=== PATIENT | female | born 1985 | race Caucasian/White ===

== ENCOUNTER 2017-04-21 17:02 | Inpatient (IN) | payer MEDICAID ==
[2017-04-21] MEDS ORDERED: Misoprostol 25 MCG (1/4 of 100 MCG) Tab VAG PRN (17:26)
[2017-04-21] MEDS ORDERED: Lidocaine 1% 50 ML MDV INJECT PRN (17:26)
[2017-04-21] MEDS ORDERED: Water For Irrigation,Sterile 1,000 ML Container IRR PRN (17:26)
[2017-04-21] MEDS ORDERED: Terbutaline 1 MG/ML SDV SUBCUT PRN (17:26)
[2017-04-21] MEDS ORDERED: Carboprost Tromethamine 250 MCG/1 ML Amp IM PRN (17:26)
[2017-04-21] MEDS ORDERED: Sodium Chloride 0.9% 2.5 ML Syringe FLUSH PRN (17:26)
[2017-04-21] MEDS ORDERED: Sodium Chloride 0.9% 10 ML Syringe FLUSH PRN (17:26)
[2017-04-21] MEDS ORDERED: Methylergonovine 0.2 MG/1 ML Amp IM PRN (17:26)
[2017-04-21] MEDS ORDERED: Misoprostol 200 MCG Tab PO PRN (17:26)
[2017-04-21] MEDS ORDERED: Oxytocin/Lactated Ringers 30 UNIT/500 ML BAG IV SCH ×2 (17:30)
[2017-04-21] MEDS ORDERED: Misoprostol 25 MCG (1/4 of 100 MCG) Tab VAG SCH (17:30)
[2017-04-21] MEDS: Lactated Ringers 1,000 ML IV SCH (17:55)
[2017-04-22] MEDS: Butorphanol 1 MG/ML SDV IVPUSH PRN ×3 (01:30→05:49)
[2017-04-22] MEDS: Lactated Ringers 1,000 ML IV SCH ×2 (05:49→10:39)
[2017-04-22] MEDS ORDERED: Butorphanol 1 MG/ML SDV IVPUSH PRN (09:09)
[2017-04-22] MEDS ORDERED: fentaNYL 100 MCG/2 ML SDV ONE (10:13)
[2017-04-22] MEDS ORDERED: Ropivacaine HCl/PF 100 ML ONE (10:14)
--- NOTE | 2017-04-22 10:44 | PCM.PREANE ---
Preanesthetic Assessment - Anesthesia/Transfusion/Family Hx Anesthesia History: Prior Anesthesia Without Reaction ("laughing gas for wisdom teeth only") Family History of Anesthesia Reaction: No Transfusion History: No Prior Transfusion(s) - Review of Systems General: No Symptoms Pulmonary: No Symptoms Cardiovascular: No Symptoms Gastrointestinal: Nausea, Vomiting Neurological: No Symptoms Other: Reports: None - Physical Assessment NPO Status Date: 04/22/17 NPO Status Time: 10:42 (sips/chips) Blood Pressure: 136/61 Height: 5 ft 3 in Weight: 170 lb ASA Class: 1 Mental Status: Alert & Oriented x3 Dentition: Reports: Normal Dentition ROM/Head Extension: Full Lungs: Clear to auscultation, Normal respiratory effort Cardiovascular: Regular Rate, Regular Rhythm - Lab Values: Laboratory Last Values WBC 12.34 K/uL (4.0-11.0) H 04/21/17 17:47 RBC 3.84 M/uL (4.30-5.90) L 04/21/17 17:47 Hgb 12.6 g/dL (12.0-16.0) 04/21/17 17:47 Hct 36.5 % (36.0-46.0) 04/21/17 17:47 MCV 95.1 fL (80.0-98.0) 04/21/17 17:47 MCH 32.8 pg (27.0-32.0) H 04/21/17 17:47 MCHC 34.5 g/dL (31.0-37.0) 04/21/17 17:47 RDW Std Deviation 44.3 fl (28.0-62.0) 04/21/17 17:47 RDW Coeff of Iram 13 % (11.0-15.0) 04/21/17 17:47 Plt Count 247 K/uL (150-400) 04/21/17 17:47 MPV 11.00 fL (7.40-12.00) 04/21/17 17:47 Nucleated RBC % 0.0 /100WBC 04/21/17 17:47 Nucleated RBCs # 0 K/uL 04/21/17 17:47 Blood Type O NEGATIVE 04/21/17 17:47 Antibody Screen NEGATIVE 04/21/17 17:47 - Allergies Allergies/Adverse Reactions: Allergies Allergy/AdvReac Type Severity Reaction Status Date / Time amoxicillin Allergy Hives Verified 04/21/17 17:25 - Blood Blood Available: No Product(s) Available: None - Anesthesia Plan Free Text/Narrative:: Labor Epidural Pre-Op Medication Ordered: None - Acknowledgements Anesthesia Type Planned: Epidural Pt an Appropriate Candidate for the Planned Anesthesia: Yes Alternatives and Risks of Anesthesia Discussed w Pt/Guardian: Yes Pt/Guardian Understands and Agrees with Anesthesia Plan: Yes PreAnesthesia Questionnaire [employer]NER History: Reports: - Past Surgical History HEENT Surgical History: Reports: Oral Surgery, Other (See Below) Other HEENT Surgeries/Procedures: wisdom tooth extraction - SUBSTANCE USE Smoking Status *Q: Former Smoker Recreational Drug Use History: No - HOME MEDS Home Medications: Home Meds PNV95/Ferrous Fumarate/FA [ Tablet] 04/21/17 [History] - CURRENT (IN HOUSE) MEDS Current Meds: Current Medications Butorphanol Tartrate (Stadol) 1 mg IVPUSH Q1H PRN PRN Reason: Pain Last Admin: 04/22/17 05:49 Dose: 1 mg Butorphanol Tartrate (Stadol) 1 mg IVPUSH ONETIME PRN PRN Reason: Pain Carboprost Tromethamine (Hemabate Ds) 250 mcg IM ASDIRECTED PRN PRN Reason: Post Hemorrhage Lactated Ringer's (Ringers, Lactated) 1,000 mls @ 150 mls/hr IV ASDIRECTED BRENDEN Last Admin: 04/22/17 10:39 Dose: 150 mls/hr Oxytocin/Lactated Ringer's (Pitocin In Lr 30 Units/500 Ml) 30 unit in 500 mls @ 2 mls/hr IV TITRATE BRENDEN; 2 MUNITS/MIN PRN Reason: Protocol Stop: 04/22/17 17:29 Oxytocin/Lactated Ringer's (Pitocin In Lr 30 Units/500 Ml) 30 unit in 500 mls @ 2 mls/hr IV TITRATE BRENDEN; 2 MUNITS/MIN PRN Reason: Protocol Last Admin: 04/22/17 09:20 Dose: 2 munits/min, 2 mls/hr Lidocaine HCl (Xylocaine 1%) 50 ml INJECT .ONCE PRN PRN Reason: Laceration repair Methylergonovine Maleate (Methergine) 0.2 mg IM ASDIRECTED PRN PRN Reason: Post Hemorrhage Misoprostol (Cytotec) 200 mcg PO .ONCE PRN PRN Reason: Post Hemorrhage Misoprostol (Cytotec) 25 mcg VAG .ONCE BRENDEN Last Admin: 04/21/17 19:54 Dose: 25 mcg Misoprostol (Cytotec) 25 mcg VAG Q4H PRN PRN Reason: Cervical Ripening Stop: 04/22/17 21:27 Sodium Chloride (Saline Flush) 10 ml FLUSH ASDIRECTED PRN PRN Reason: Keep Vein Open Sodium Chloride (Saline Flush) 2.5 ml FLUSH ASDIRECTED PRN PRN Reason: Keep Vein Open Sterile Water (Sterile Water For Irrigation) 1,000 ml IRR ASDIRECTED PRN PRN Reason: delivery Terbutaline Sulfate (Brethine) 0.25 mg SUBCUT ASDIRECTED PRN PRN Reason: Tacysystole Discontinued Medications Fentanyl (Sublimaze) Confirm Administered Dose 100 mcg .ROUTE .STK-MED ONE Stop: 04/22/17 10:14 Ropivacaine (Naropin 0.2%) Confirm Administered Dose 100 mls @ as directed .ROUTE .STK-MED ONE Stop: 04/22/17 10:15
[2017-04-22] MEDS ORDERED: Bisacodyl 10 MG Supp RECTAL PRN (17:56)
[2017-04-22] MEDS ORDERED: Acetaminophen 500 MG Tab PO PRN ×2 (17:56)
[2017-04-22] MEDS ORDERED: Ibuprofen 400 MG Tab PO PRN (17:56)
[2017-04-22] MEDS ORDERED: oxyCODONE 5 MG Tab PO PRN (17:56)
[2017-04-22] MEDS ORDERED: Benzocaine/Menthol 20%-0.5% Spray 78 GM Cannister TOP PRN (17:56)
[2017-04-22] MEDS ORDERED: Aluminum Hydroxide/Magnesium Hydroxide/Simethicone Susp 30 ML Cup PO PRN (17:56)
[2017-04-22] MEDS ORDERED: Docusate Sodium 100 MG Cap PO PRN (17:56)
[2017-04-22] MEDS ORDERED: Witch Hazel Medicated Pads 40/Jar TOP PRN (17:56)
[2017-04-22] MEDS: Ibuprofen 800 MG Tab PO PRN (21:02)
[2017-04-22] MEDS: Lanolin 100% Cream 7 GM Tube TOP PRN (21:02)
--- NOTE | 2017-04-22 22:38 | OR ---
SURGEON: Cary Mccabe M.D. DATE OF PROCEDURE: 04/22/2017 PREOPERATIVE DIAGNOSES: 1. A 41-week intrauterine . 2. Induction for positive . 3. Arrest of descent. POSTOPERATIVE DIAGNOSES: 1. A 41-week intrauterine . 2. Induction for positive . 3. Arrest of descent. PROCEDURE: Vacuum assisted vaginal delivery. Second-degree vaginal laceration repaired. ANESTHESIA: Epidural. COMPLICATIONS: None known. FINDINGS: Term male score 9 at 1 minute, 9 at 5 minutes. Weight 3440 g. Spontaneous delivery, intact placenta, 3-vessel cord. DISPOSITION: Infant to nursery, mom in LDRP, stable. PROCEDURE IN DETAIL: Lizeth is a 31-year-old, G1, P0, at 41 weeks' gestational age, who presented on the evening of 04/21/2017 for scheduled induction of labor due to positive . On initial examination, she was found to be 1-2 cm dilated, was initiated on Cytotec, ripening responded nicely to this. Following morning, she was 2 cm, 80% effaced, -2 station. She had spontaneous rupture of membranes with clear fluid around midnight. The patient became increasingly uncomfortable on Pitocin induction the following morning and underwent regional anesthesia from the epidural. She became uncomfortable and began to progress more rapidly thereafter. Shortly after the epidural, she was found to be 7 cm, and within the next 2 hours, she progressed to complete 100% effaced, +2 station. The patient was very tired at this time and after arrest, so she was allowed to continue to labor. heart tones remained in the 120s with variability. The patient began pushing efforts at approximately 3:00 p.m. and pushed readily however with minimal change in station, +2 station. I came to assist patient at approximately 4:30 p.m. and she was found to be complete 100% effaced, +2 station. [place] to be in the OA position. With pushing efforts, there was little movement to pass the station, therefore discussed options with patient including an operative assisted vaginal delivery in the form of vacuum. Risks of procedure were discussed including cephalic hematoma, intracranial bleeding, and increased risk for maternal vaginal trauma. The patient had voiced her understanding. She would like to proceed with assistance at this time. The sutures once again including sagittal suture was palpated. [place] was approximately 3400 g. The Mityvac was placed, and with the next two contractions, was attempted to insufflate the vacuum, however did not maintain suction really at all. Therefore, despite attempts at repositioning, just did not maintain pressure even with testing, therefore discarded this vacuum and proceeded to use another one. Once again, the vacuum was gently placed. The patient tolerated this keeping in mind the suture lines, and with the next approximately 4-5 contractions, was able to deliver to a +4 station. With the insufflation in the green zone during pushing process and otherwise desufflated between, there were two pop offs that occurred during the last stages of the pushing effort. The 's head then delivered followed by the anterior shoulder posterior made by without difficulty and nuchal cord x1 was reduced manually. The infant's oropharynx and nares bulb suctioned. Cord was clamped x2 and cut. Infant was crying with good tone on the perineum and was handed to his mother with attending nursing staff at her side. Cord arterial, cord venous, cord blood was obtained. Light suprapubic pressure was applied. The placenta was delivered spontaneously intact. Vigorous fundal uterine massage was then applied while 30 units of Pitocin was delivered in 500 mL IV fluid. Upon inspection of cervix, vaginal sidewalls, and perineum, there was found to be a second-degree vaginal laceration in the midline. This was repaired using 3-0 Vicryl in the usual fashion. Hemostasis appears evident. Uterus remained firm. Sponge and needle count was correct. The patient will remain in LDRP. Infant in nursery. STEVE / NEAL /[id number]
[2017-04-23] MEDS: Ibuprofen 800 MG Tab PO PRN ×2 (06:07→16:11)
--- NOTE | 2017-04-23 08:15 | PCM.PNPP ---
<Rocio Mullen - Last Filed: 04/23/17 08:12> - General Info Date of Service: 04/23/17 Functional Status: Reports: pain controlled, tolerating diet, ambulating, urinating - Review of Systems General: Denies: Fever, Weakness, Fatigue Pulmonary: Denies: shortness of breath, pleuritic chest pain, cough Cardiovascular: Denies: Chest Pain, Palpitations, Dyspnea on Exertion Gastrointestinal: Denies: Abdominal pain, Constipation Genitourinary: Denies: dysuria Psychiatric: Reports: no symptoms - General Info Date of Service: 04/23/17 - Patient Data Vital Signs - most recent: Last Vital Signs Temp 36.8 C 04/23/17 05:00 Pulse 76 04/23/17 05:00 Resp 16 04/23/17 05:00 BP 114/68 04/23/17 05:00 Pulse Ox 94 L 04/23/17 05:00 Weight - most recent: 77.111 kg Lab Results - last 24 hrs: Laboratory Results - last 24 hr 04/23/17 Range/Units 05:11 Hgb 11.2 L (12.0-16.0) g/dL Hct 33.3 L (36.0-46.0) % Med Orders - Current: Current Medications Acetaminophen (Tylenol Extra Strength) 500 mg PO Q4H PRN PRN Reason: Pain Acetaminophen (Tylenol Extra Strength) 1,000 mg PO Q4H PRN PRN Reason: Pain Al Hydroxide/Mg Hydroxide (Mag-Al Plus) 30 ml PO Q8H PRN PRN Reason: Heartburn Benzocaine/Menthol (Dermoplast Pain Relief 20%-0.5% [place]) 78 gm TOP ASDIRECTED PRN PRN Reason: Perineal Comfort Measure Bisacodyl (Dulcolax) 10 mg RECTAL .ONCE PRN PRN Reason: Constipation Carboprost Tromethamine (Hemabate Ds) 250 mcg IM ASDIRECTED PRN PRN Reason: Post Hemorrhage Docusate Sodium (Colace) 100 mg PO BID PRN PRN Reason: Constipation Emollient Ointment (Lansinoh Hpa) 0 gm TOP ASDIRECTED PRN PRN Reason: Sore Nipples Last Admin: 04/22/17 21:02 Dose: 1 gm Lactated Ringer's (Ringers, Lactated) 1,000 mls @ 150 mls/hr IV ASDIRECTED BRENDEN Last Admin: 04/22/17 10:39 Dose: 150 mls/hr Oxytocin/Lactated Ringer's (Pitocin In Lr 30 Units/500 Ml) 30 unit in 500 mls @ 2 mls/hr IV TITRATE BRENDEN; 2 MUNITS/MIN PRN Reason: Protocol Last Titration: 04/22/17 15:52 Dose: 6 munits/min, 6 mls/hr Ibuprofen (Motrin) 400 mg PO Q4H PRN PRN Reason: Pain Ibuprofen (Motrin) 800 mg PO Q6H PRN PRN Reason: Pain Last Admin: 04/23/17 06:07 Dose: 800 mg Methylergonovine Maleate (Methergine) 0.2 mg IM ASDIRECTED PRN PRN Reason: Post Hemorrhage Misoprostol (Cytotec) 200 mcg PO .ONCE PRN PRN Reason: Post Hemorrhage Oxycodone HCl (Oxycodone) 5 mg PO Q2H PRN PRN Reason: Pain Sodium Chloride (Saline Flush) 2.5 ml FLUSH ASDIRECTED PRN PRN Reason: Keep Vein Open Witch Jeannie (Tucks) 1 pad TOP ASDIRECTED PRN PRN Reason: comfort care Last Admin: 04/22/17 21:00 Dose: 1 applic Discontinued Medications Butorphanol Tartrate (Stadol) 1 mg IVPUSH Q1H PRN PRN Reason: Pain Last Admin: 04/22/17 05:49 Dose: 1 mg Butorphanol Tartrate (Stadol) 1 mg IVPUSH ONETIME PRN PRN Reason: Pain Fentanyl (Sublimaze) Confirm Administered Dose 100 mcg .ROUTE .STK-MED ONE Stop: 04/22/17 10:14 Oxytocin/Lactated Ringer's (Pitocin In Lr 30 Units/500 Ml) 30 unit in 500 mls @ 2 mls/hr IV TITRATE BRENDEN; 2 MUNITS/MIN PRN Reason: Protocol Stop: 04/22/17 17:29 Ropivacaine (Naropin 0.2%) Confirm Administered Dose 100 mls @ as directed .ROUTE .STK-MED ONE Stop: 04/22/17 10:15 Lidocaine HCl (Xylocaine 1%) 50 ml INJECT .ONCE PRN PRN Reason: Laceration repair Misoprostol (Cytotec) 25 mcg VAG .ONCE BRENDEN Last Admin: 04/21/17 19:54 Dose: 25 mcg Misoprostol (Cytotec) 25 mcg VAG Q4H PRN PRN Reason: Cervical Ripening Stop: 04/22/17 21:27 Sodium Chloride (Saline Flush) 10 ml FLUSH ASDIRECTED PRN PRN Reason: Keep Vein Open Sterile Water (Sterile Water For Irrigation) 1,000 ml IRR ASDIRECTED PRN PRN Reason: delivery Last Admin: 04/22/17 17:30 Dose: 1,000 ml Terbutaline Sulfate (Brethine) 0.25 mg SUBCUT ASDIRECTED PRN PRN Reason: Tacysystole - Interaction Disposition, : [place] in Room with Family Feeding: Attempted ; Nursed Fair/Poor Support Person: , Mother - Recovery Exam Fundal Tone: Firm Fundal Level: At Umbilicus Fundal Placement: Midline Lochia Amount: Small, Moderate Lochia Color: Rubra/Red Perineum Description: Edematous Other Perinuem Description: 2nd degree laceration with repair Episiotomy/Laceration: Approximated Bladder Status: Voiding - Exam General: alert, oriented Neck: supple Lungs: Clear to auscultation, Normal respiratory effort Cardiovascular: Regular Rate, Regular Rhythm Abdomen: bowel sounds present, soft, no tenderness, no distension Extremities: edema (trace) Psy/Mental Status: alert, normal affect, normal mood - Problem List & Annotations (1) Vaginal delivery SNOMED Code(s): 507258475 Code(s): O80 - ENCOUNTER FOR FULL-TERM UNCOMPLICATED DELIVERY Status: Acute Current Visit: Yes - Problem List Review Problem List Initiated/Reviewed/Updated: Yes - Assessment Assessment:: PPD #1 from vacuum assisted vaginal delivery. Minimal pain and lochia. Breast feeding well. Discharge home today. - Plan Plan:: Discharge home today. Nothing in the vagina for 6 weeks. Continue PNV while breast feeding. Can use OTC ibuprofen/tylenol as needed for pain. Instructed patient to call if she develops fever greater than 101 or bleeding through a large pad an hour. F/U with [facility] in 6 weeks. <Cary Mccabe R - Last Filed: 04/23/17 09:18> - Patient Data Vital Signs - most recent: Last Vital Signs Temp 36.8 C 04/23/17 05:00 Pulse 76 04/23/17 05:00 Resp 16 04/23/17 05:00 BP 114/68 04/23/17 05:00 Pulse Ox 94 L 04/23/17 05:00 Lab Results - last 24 hrs: Laboratory Results - last 24 hr 04/23/17 Range/Units 05:11 Hgb 11.2 L (12.0-16.0) g/dL Hct 33.3 L (36.0-46.0) % Med Orders - Current: Current Medications Acetaminophen (Tylenol Extra Strength) 500 mg PO Q4H PRN PRN Reason: Pain Acetaminophen (Tylenol Extra Strength) 1,000 mg PO Q4H PRN PRN Reason: Pain Al Hydroxide/Mg Hydroxide (Mag-Al Plus) 30 ml PO Q8H PRN PRN Reason: Heartburn Benzocaine/Menthol (Dermoplast Pain Relief 20%-0.5% [place]) 78 gm TOP ASDIRECTED PRN PRN Reason: Perineal Comfort Measure Bisacodyl (Dulcolax) 10 mg RECTAL .ONCE PRN PRN Reason: Constipation Carboprost Tromethamine (Hemabate Ds) 250 mcg IM ASDIRECTED PRN PRN Reason: Post Hemorrhage Docusate Sodium (Colace) 100 mg PO BID PRN PRN Reason: Constipation Emollient Ointment (Lansinoh Hpa) 0 gm TOP ASDIRECTED PRN PRN Reason: Sore Nipples Last Admin: 04/22/17 21:02 Dose: 1 gm Lactated Ringer's (Ringers, Lactated) 1,000 mls @ 150 mls/hr IV ASDIRECTED BRENDEN Last Admin: 04/22/17 10:39 Dose: 150 mls/hr Oxytocin/Lactated Ringer's (Pitocin In Lr 30 Units/500 Ml) 30 unit in 500 mls @ 2 mls/hr IV TITRATE BRENDEN; 2 MUNITS/MIN PRN Reason: Protocol Last Titration: 04/22/17 15:52 Dose: 6 munits/min, 6 mls/hr Ibuprofen (Motrin) 400 mg PO Q4H PRN PRN Reason: Pain Ibuprofen (Motrin) 800 mg PO Q6H PRN PRN Reason: Pain Last Admin: 04/23/17 06:07 Dose: 800 mg Methylergonovine Maleate (Methergine) 0.2 mg IM ASDIRECTED PRN PRN Reason: Post Hemorrhage Misoprostol (Cytotec) 200 mcg PO .ONCE PRN PRN Reason: Post Hemorrhage Oxycodone HCl (Oxycodone) 5 mg PO Q2H PRN PRN Reason: Pain Sodium Chloride (Saline Flush) 2.5 ml FLUSH ASDIRECTED PRN PRN Reason: Keep Vein Open Witch Jeannie (Tucks) 1 pad TOP ASDIRECTED PRN PRN Reason: comfort care Last Admin: 04/22/17 21:00 Dose: 1 applic Discontinued Medications Butorphanol Tartrate (Stadol) 1 mg IVPUSH Q1H PRN PRN Reason: Pain Last Admin: 04/22/17 05:49 Dose: 1 mg Butorphanol Tartrate (Stadol) 1 mg IVPUSH ONETIME PRN PRN Reason: Pain Fentanyl (Sublimaze) Confirm Administered Dose 100 mcg .ROUTE .STK-MED ONE Stop: 04/22/17 10:14 Oxytocin/Lactated Ringer's (Pitocin In Lr 30 Units/500 Ml) 30 unit in 500 mls @ 2 mls/hr IV TITRATE BRENDEN; 2 MUNITS/MIN PRN Reason: Protocol Stop: 04/22/17 17:29 Ropivacaine (Naropin 0.2%) Confirm Administered Dose 100 mls @ as directed .ROUTE .STK-MED ONE Stop: 04/22/17 10:15 Lidocaine HCl (Xylocaine 1%) 50 ml INJECT .ONCE PRN PRN Reason: Laceration repair Misoprostol (Cytotec) 25 mcg VAG .ONCE BRENDEN Last Admin: 04/21/17 19:54 Dose: 25 mcg Misoprostol (Cytotec) 25 mcg VAG Q4H PRN PRN Reason: Cervical Ripening Stop: 04/22/17 21:27 Sodium Chloride (Saline Flush) 10 ml FLUSH ASDIRECTED PRN PRN Reason: Keep Vein Open Sterile Water (Sterile Water For Irrigation) 1,000 ml IRR ASDIRECTED PRN PRN Reason: delivery Last Admin: 04/22/17 17:30 Dose: 1,000 ml Terbutaline Sulfate (Brethine) 0.25 mg SUBCUT ASDIRECTED PRN PRN Reason: Tacysystole - My Orders Last 24 Hours: My Active Orders 04/22/17 17:56 May Shower [RC] ASDIRECTED Up ad Heather [RC] ASDIRECTED Vital Signs [RC] PER UNIT ROUTINE Acetaminophen [Tylenol Extra Strength] 1,000 mg PO Q4H PRN Acetaminophen [Tylenol Extra Strength] 500 mg PO Q4H PRN Alum Hydrox/Mag Hydrox/Simeth [Mag-Al Plus] 30 ml PO Q8H PRN Benzocaine/Menthol [Dermoplast Pain Relief 20%-0.5% [place]] 78 gm TOP ASDIRECTED PRN Bisacodyl [Dulcolax] 10 mg RECTAL .ONCE PRN Docusate Sodium [Colace] 100 mg PO BID PRN Ibuprofen [Motrin] 400 mg PO Q4H PRN Ibuprofen [Motrin] 800 mg PO Q6H PRN Lanolin [Lansinoh HPA] See Dose Instructions TOP ASDIRECTED PRN Witch Jeannie [Tucks] 1 pad TOP ASDIRECTED PRN oxyCODONE 5 mg PO Q2H PRN Assess Lochia [WOMSER] Per Unit Routine Assess Uterine Involution [WOMSER] Per Unit Routine Breast Pump [WOMSER] Per Unit Routine Ice Therapy [OM.PC] Per Unit Routine Perineal Care [OM.PC] Per Unit Routine Peripheral IV Discontinue [OM.PC] Routine Sitz Bath [OM.PC] Per Unit Routine 04/22/17 Dinner Regular Diet [DIET] - Plan Plan:: Patient seen and examined--agree with above
[2017-04-23] MEDS: Lanolin 100% Cream 7 GM Tube TOP PRN (14:00)
[2017-04-23 16:31] VITALS: BP 116/79
--- NOTE | 2017-04-23 21:08 | PCM48HPAN ---
Post Anesthesia Note - EVALUATION WITHIN 48HRS OF ANESTHETIC Vital Signs in Normal Range: Yes Patient Participated in Evaluation: Yes Respiratory Function Stable: Yes Airway Patent: Yes Cardiovascular Function Stable: Yes Hydration Status Stable: Yes Pain Control Satisfactory: Yes Nausea and Vomiting Control Satisfactory: Yes Mental Status Recovered: Yes
== END 2017-04-23 19:20 | disposition home or self-care (01) | DRG 775 ==
LOC: MW.OBCHECK 17:02 → MW.OB 17:15 → MW.OBCHECK 17:27 → OBSVTOIN 04-22 17:28
PROVIDERS: ADMIT Obstetrics & Gynecology; ATTEND Obstetrics & Gynecology
PROC: 10D07Z6 Extraction of Products of Conception, Vacuum, Via Natural or Artificial Opening (ICD-10-PCS; principal; 2017-04-22)
PROC: 0KQM0ZZ Repair Perineum Muscle, Open Approach (ICD-10-PCS; 2017-04-22)
PROC: 3E0P7GC Introduction of Other Therapeutic Substance into Female Reproductive, Via Natural or Artificial Opening (ICD-10-PCS; 2017-04-22)
DX: O48.0 Post-term pregnancy (principal); O62.1 Secondary uterine inertia; Z3A.41 41 weeks gestation of pregnancy; Z37.0 Single live birth
CPT/HCPCS: 36415; 59025; 85014; 85018; 85027; 86850; 86900; 86901; A9270-GY; J0595; J2795; J3010; J7120

== ENCOUNTER 2017-08-09 02:33 | Day surgery (SDC) | payer MEDICAID ==
--- NOTE | 2017-08-09 03:20 | EDM.PDOC ---
ED HPI GENERAL MEDICAL PROBLEM - General Chief Complaint: Abdominal Pain Stated Complaint: PAIN ON RIGHT SIDE Time Seen by Provider: 08/09/17 02:50 - History of Present Illness INITIAL COMMENTS - FREE TEXT/NARRATIVE: HISTORY AND PHYSICAL: History of present illness: Patient 31-year-old white female presents with concern of acute right lower quadrant abdominal pain and possible appendicitis she denies fever chills vaginal discharge irregular bleeding denies history of ovarian cyst or other gynecological problems denies history of urolithiasis. No trauma Review of systems: As per history of present illness and below otherwise all systems reviewed and negative. Past medical history: As per history of present illness and as reviewed below otherwise noncontributory. Surgical history: As per history of present illness and as reviewed below otherwise noncontributory. Social history: No reported history of drug or alcohol abuse. Family history: As per history of present illness and as reviewed below otherwise noncontributory. Physical exam: HEENT: Atraumatic, normocephalic, pupils reactive, negative for conjunctival pallor or scleral icterus, mucous membranes moist, throat clear, neck supple, nontender, trachea midline. Lungs: Clear to auscultation, breath sounds equal bilaterally, chest nontender. Heart: S1S2, regular, negative for clicks, rubs, or JVD. Abdomen: Soft, nondistended, tenderness in the right lower abdomen this is not well localized is no rebound or guarding. Negative for masses or hepatosplenomegaly. Negative for costovertebral tenderness. Pelvis: Stable nontender. Genitourinary: Deferred. Rectal: Deferred. Extremities: Atraumatic, negative for cords or calf pain. Neurovascular unremarkable. Neuro: Awake, alert, oriented. Cranial nerves II through XII unremarkable. Cerebellum unremarkable. Motor and sensory unremarkable throughout. Exam nonfocal. Diagnostics: CBC CMP UA hCG CT abdomen and pelvis Therapeutics: Normal saline 1 L bolus Impression: #1 acute right-sided abdominal pain Definitive disposition and diagnosis as appropriate pending reevaluation and review of above. 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: Neurological History: Reports: None Psychiatric History: Reports: None Endocrine/Metabolic History: Reports: None - Infectious Disease History Infectious Disease History: Reports: None - Past Surgical History HEENT Surgical History: Reports: Oral Surgery, Other (See Below) Other HEENT Surgeries/Procedures: wisdom tooth extraction Female Surgical History: Reports: None Musculoskeletal Surgical History: Reports: None Social & Family History - Family History OBGYN: Reports: Endocrine/Metabolic: Reports: Diabetes, type II Oncologic: Reports: Breast, Colon, Liver - Tobacco Use Smoking Status *Q: Never Smoker Used Tobacco, but Quit: Yes Month Tobacco Last Used: 10/2016 - Caffeine Use Caffeine Use: Reports: Coffee - Recreational Drug Use Recreational Drug Use: No ED ROS GENERAL - Review of Systems Review Of Systems: ROS reveals no pertinent complaints other than HPI. ED EXAM, GENERAL - Physical Exam Exam: See Below (See dictated) Course - Vital Signs Last Recorded V/S: Last Vital Signs Temp 37.1 C 08/09/17 11:30 Pulse 86 08/09/17 14:30 Resp 18 08/09/17 14:30 BP 104/59 L 08/09/17 14:30 Pulse Ox 97 08/09/17 14:30 - Orders/Labs/Meds Labs: Laboratory Tests 08/09/17 08/09/17 08/09/17 Range/Units 02:55 02:55 02:59 WBC 12.99 H (4.0-11.0) K/uL RBC 4.13 L (4.30-5.90) M/uL Hgb 13.0 (12.0-16.0) g/dL Hct 36.7 (36.0-46.0) % MCV 88.9 (80.0-98.0) fL MCH 31.5 (27.0-32.0) pg MCHC 35.4 (31.0-37.0) g/dL RDW Std Deviation 41.0 (28.0-62.0) fl RDW Coeff of Iram 13 (11.0-15.0) % Plt Count 205 (150-400) K/uL MPV 10.20 (7.40-12.00) fL Neut % (Auto) 81.3 H (48.0-80.0) % Lymph % (Auto) 10.5 L (16.0-40.0) % [place] % (Auto) 6.4 (0.0-15.0) % Eos % (Auto) 1.6 (0.0-7.0) % Baso % (Auto) 0.2 (0.0-1.5) % Neut # (Auto) 10.6 H (1.4-5.7) K/uL Lymph # (Auto) 1.4 (0.6-2.4) K/uL [place] # (Auto) 0.8 (0.0-0.8) K/uL Eos # (Auto) 0.2 (0.0-0.7) K/uL Baso # (Auto) 0.0 (0.0-0.1) K/uL Nucleated RBC % 0.0 /100WBC Nucleated RBCs # 0 K/uL Sodium (136-146) mmol/L Potassium (3.5-5.1) mmol/L Chloride (98-110) mmol/L Carbon Dioxide (21-31) mmol/L BUN (6.0-23.0) mg/dL Creatinine (0.6-1.5) mg/dL Est Cr Clr Drug Dosing Estimated GFR (MDRD) ml/min Glucose (60-110) mg/dL Calcium (8.8-10.8) mg/dL Total Bilirubin (0.1-1.5) mg/dL AST (5-40) IU/L ALT (8-54) IU/L Alkaline Phosphatase (40-150) Total Protein (6.0-8.0) g/dL Albumin (3.5-5.0) g/dL Globulin (2.0-3.5) g/dL Albumin/Globulin Ratio (1.3-2.8) Urine Color YELLOW Urine Appearance CLEAR Urine pH 6.0 (5.0-8.0) Ur Specific [place] 1.020 (1.001-1.035) Urine Protein NEGATIVE (NEGATIVE) mg/dL Urine Glucose (UA) NEGATIVE (NEGATIVE) mg/dL Urine Ketones NEGATIVE (NEGATIVE) mg/dL Urine Occult Blood NEGATIVE (NEGATIVE) Urine Nitrite NEGATIVE (NEGATIVE) Urine Bilirubin NEGATIVE (NEGATIVE) Urine Urobilinogen 0.2 (<2.0) EU/dL Ur Leukocyte Esterase SMALL (NEGATIVE) Urine RBC 0-2 (0-2/HPF) Urine WBC 6-10 (0-5/HPF) Ur Epithelial Cells FEW (NONE-FEW) Urine Bacteria FEW (NEGATIVE) Urine HCG, Qual NEGATIVE (NEGATIVE) 08/09/17 Range/Units 02:59 WBC (4.0-11.0) K/uL RBC (4.30-5.90) M/uL Hgb (12.0-16.0) g/dL Hct (36.0-46.0) % MCV (80.0-98.0) fL MCH (27.0-32.0) pg MCHC (31.0-37.0) g/dL RDW Std Deviation (28.0-62.0) fl RDW Coeff of Iram (11.0-15.0) % Plt Count (150-400) K/uL MPV (7.40-12.00) fL Neut % (Auto) (48.0-80.0) % Lymph % (Auto) (16.0-40.0) % [place] % (Auto) (0.0-15.0) % Eos % (Auto) (0.0-7.0) % Baso % (Auto) (0.0-1.5) % Neut # (Auto) (1.4-5.7) K/uL Lymph # (Auto) (0.6-2.4) K/uL [place] # (Auto) (0.0-0.8) K/uL Eos # (Auto) (0.0-0.7) K/uL Baso # (Auto) (0.0-0.1) K/uL Nucleated RBC % /100WBC Nucleated RBCs # K/uL Sodium 139 (136-146) mmol/L Potassium 3.7 (3.5-5.1) mmol/L Chloride 108 (98-110) mmol/L Carbon Dioxide 22 (21-31) mmol/L BUN 17 (6.0-23.0) mg/dL Creatinine 0.8 (0.6-1.5) mg/dL Est Cr Clr Drug Dosing TNP Estimated GFR (MDRD) > 60.0 ml/min Glucose 146 H (60-110) mg/dL Calcium 9.1 (8.8-10.8) mg/dL Total Bilirubin 0.9 (0.1-1.5) mg/dL AST 19 (5-40) IU/L ALT 21 (8-54) IU/L Alkaline Phosphatase 79 (40-150) Total Protein 7.1 (6.0-8.0) g/dL Albumin 4.0 (3.5-5.0) g/dL Globulin 3.1 (2.0-3.5) g/dL Albumin/Globulin Ratio 1.3 (1.3-2.8) Urine Color Urine Appearance Urine pH (5.0-8.0) Ur Specific [place] (1.001-1.035) Urine Protein (NEGATIVE) mg/dL Urine Glucose (UA) (NEGATIVE) mg/dL Urine Ketones (NEGATIVE) mg/dL Urine Occult Blood (NEGATIVE) Urine Nitrite (NEGATIVE) Urine Bilirubin (NEGATIVE) Urine Urobilinogen (<2.0) EU/dL Ur Leukocyte Esterase (NEGATIVE) Urine RBC (0-2/HPF) Urine WBC (0-5/HPF) Ur Epithelial Cells (NONE-FEW) Urine Bacteria (NEGATIVE) Urine HCG, Qual (NEGATIVE) Meds: Medications Discontinued Medications Generic Name Dose Route Start Last Admin Trade Name Boraq PRN Reason Stop Dose Admin Hydrocodone Bitart/Acetaminophen 2 tab 08/09/17 10:58 [place] 325-5 Mg PO Q4H PRN Abdominal Pain Bupivacaine HCl Confirm 08/09/17 09:06 Marcaine 0.5% Administered 08/09/17 09:07 Dose 30 ml .ROUTE .STK-MED ONE Dexamethasone Confirm 08/09/17 09:19 Dexamethasone Administered 08/09/17 09:20 Dose 20 mg .ROUTE .STK-MED ONE Diphenhydramine HCl 25 mg 08/09/17 04:47 Benadryl IVPUSH Q4H PRN Itching Fentanyl Confirm 08/09/17 09:19 Sublimaze Administered 08/09/17 09:20 Dose 100 mcg .ROUTE .STK-MED ONE Glycopyrrolate Confirm 08/09/17 09:19 Administered 08/09/17 09:20 Dose 1 mg .ROUTE .STK-MED ONE Hydromorphone HCl 0.5 mg 08/09/17 04:47 Dilaudid IVPUSH Q1H PRN Pain (severe 7-10) Sodium Chloride 1,000 mls @ 999 mls/hr 08/09/17 03:24 08/09/17 03:38 Normal Saline IV 08/09/17 04:24 999 mls/hr .Bolus ONE Administration Levofloxacin/Dextrose 750 mg/ 150 mls @ 100 mls/hr 08/09/17 04:54 08/09/17 05 :27 Premix IV 08/09/17 06:23 100 mls/hr ONETIME ONE Administration Metronidazole 500 mg/ Premix 100 mls @ 100 mls/hr 08/09/17 04:56 08/09/17 07: 18 IV 08/09/17 05:55 100 mls/hr ONETIME ONE Administration Lactated Ringer's 1,000 mls @ 125 mls/hr 08/09/17 05:15 08/09/17 05:27 Ringers, Lactated IV 125 mls/hr ASDIRECTED BRENDEN Administration Acetaminophen Confirm 08/09/17 09:25 Ofirmev Administered 08/09/17 09:26 Dose 100 mls @ as directed IV .STK-MED ONE Ketorolac Tromethamine Confirm 08/09/17 09:19 Toradol Administered 08/09/17 09:20 Dose 30 mg .ROUTE .STK-MED ONE Midazolam HCl Confirm 08/09/17 09:19 Versed 1 Mg/Ml Administered 08/09/17 09:20 Dose 2 mg .ROUTE .STK-MED ONE Morphine Sulfate Confirm 08/09/17 10:08 Morphine Administered 08/09/17 10:09 Dose 10 mg .ROUTE .STK-MED ONE Ondansetron HCl Confirm 08/09/17 09:18 Zofran Administered 08/09/17 09:19 Dose 4 mg .ROUTE .STK-MED ONE Propofol Confirm 08/09/17 09:18 Diprivan 20 Ml Administered 08/09/17 09:19 Dose 200 mg .ROUTE .STK-MED ONE Rocuronium [place] Confirm 08/09/17 09:19 Zemuron Administered 08/09/17 09:20 Dose 100 mg .ROUTE .STK-MED ONE Departure - Departure Time of Disposition: 03:30 Disposition: Admitted As Inpatient 68 Condition: Good Clinical Impression: Acute appendicitis - Discharge Information
[2017-08-09 03:23] LABS: CHLORIDE,CL 108 mmol/L (98-110); SODIUM,NA 139 mmol/L (136-146)
[2017-08-09] MEDS ORDERED: Sodium Chloride 0.9% 1,000 ML IV ONE (03:24)
[2017-08-09] MEDS ORDERED: HYDROmorphone 2 MG/ML Syringe IVPUSH PRN (04:47)
[2017-08-09] MEDS ORDERED: diphenhydrAMINE 50 MG/ML SDV IVPUSH PRN (04:47)
[2017-08-09] MEDS ORDERED: Levofloxacin/Dextrose 5%-Water 750 MG in Premix Bag 1 BAG IV ONE (04:54)
[2017-08-09] MEDS ORDERED: metroNIDAZOLE/Normal Saline 500 MG in Premix Bag 1 BAG IV ONE (04:56)
[2017-08-09] MEDS ORDERED: Lactated Ringers 1,000 ML IV SCH (05:15)
--- NOTE | 2017-08-09 08:43 | PCM.HP ---
H&P History of Present Illness - General Date of Service: 08/09/17 Admit Problem/Dx: Admission Diagnosis/Problem Admission Diagnosis/Problem Appendicitis Source of Information: Patient History Limitations: Reports: No Limitations - History of Present Illness Initial Comments - Free Text/Narative: Miriam is a 31 year old female who woke up this morning at 1230 with RLQ pain. It was made worse by movement. It was associated with dry heaves and nausea. She looked up her symptoms online and thought she may have appendicitis. She presented to the ED. She had a leukocytosis with a left shift. CT of the abdomen pelvis showed a dilated appendix consistent with appendicitis. 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 History: Reports: None Neurological History: Reports: None Psychiatric History: Reports: None Endocrine/Metabolic History: Reports: None Hematologic History: Reports: None Immunologic History: Reports: None Oncologic (Cancer) History: Reports: None Dermatologic History: Reports: None - Infectious Disease History Infectious Disease History: Reports: Chicken Pox - Past Surgical History Head Surgeries/Procedures: Reports: None HEENT Surgical History: Reports: Oral Surgery, Other (See Below) Other HEENT Surgeries/Procedures: wisdom tooth extraction, near sighted Cardiovascular Surgical History: Reports: None Respiratory Surgical History: Reports: None GI Surgical History: Reports: None Female Surgical History: Reports: None Musculoskeletal Surgical History: Reports: None Oncologic Surgical History: Reports: None Social & Family History - Family History HEENT: Reports: None Cardiac: Reports: Heart Failure Respiratory: Reports: None GI: Reports: None : Reports: None OBGYN: Reports: Musculoskeletal: Reports: None Neurological: Reports: None Psychiatric: Reports: None Endocrine/Metabolic: Reports: Diabetes, type II Hematologic: Reports: None Immunologic: Reports: None Dermatologic: Reports: None Oncologic: Reports: Breast, Colon, Liver - Tobacco Use Smoking Status *Q: Former Smoker Years of Tobacco use: 12 Used Tobacco, but Quit: Yes Month Tobacco Last Used: November, Second Hand Smoke Exposure: Yes - Caffeine Use Caffeine Use: Reports: Coffee - Recreational Drug Use Recreational Drug Use: No H&P Review of Systems - Review of Systems: Review Of Systems: ROS reveals no pertinent complaints other than HPI. Exam - Exam Exam: See Below - Vital Signs Vital Signs: Last Vital Signs Temp 36.9 C 08/09/17 05:15 Pulse 98 08/09/17 05:15 Resp 17 08/09/17 05:15 BP 129/73 08/09/17 05:15 Pulse Ox 98 08/09/17 05:59 Weight: 72.9 kg - Exam General: Alert, Oriented HEENT: Conjunctiva Clear, Mucosa Moist & [place], Nares Patent, Normal Nasal Septum , Posterior Pharynx Clear Neck: Supple, Trachea Midline Lungs: Clear to Auscultation, Normal Respiratory Effort Cardiovascular: Regular Rate, Regular Rhythm GI/Abdominal Exam: Normal Bowel Sounds, Soft, No Distention, Tender (RLQ) Extremities: Normal Inspection - Patient Data Lab Results Last 24 hrs: Laboratory Results - last 24 hr 08/09/17 08/09/17 08/09/17 Range/Units 02:55 02:55 02:59 WBC 12.99 H (4.0-11.0) K/uL RBC 4.13 L (4.30-5.90) M/uL Hgb 13.0 (12.0-16.0) g/dL Hct 36.7 (36.0-46.0) % MCV 88.9 (80.0-98.0) fL MCH 31.5 (27.0-32.0) pg MCHC 35.4 (31.0-37.0) g/dL RDW Std Deviation 41.0 (28.0-62.0) fl RDW Coeff of Iram 13 (11.0-15.0) % Plt Count 205 (150-400) K/uL MPV 10.20 (7.40-12.00) fL Neut % (Auto) 81.3 H (48.0-80.0) % Lymph % (Auto) 10.5 L (16.0-40.0) % [place] % (Auto) 6.4 (0.0-15.0) % Eos % (Auto) 1.6 (0.0-7.0) % Baso % (Auto) 0.2 (0.0-1.5) % Neut # (Auto) 10.6 H (1.4-5.7) K/uL Lymph # (Auto) 1.4 (0.6-2.4) K/uL [place] # (Auto) 0.8 (0.0-0.8) K/uL Eos # (Auto) 0.2 (0.0-0.7) K/uL Baso # (Auto) 0.0 (0.0-0.1) K/uL Nucleated RBC % 0.0 /100WBC Nucleated RBCs # 0 K/uL Sodium (136-146) mmol/L Potassium (3.5-5.1) mmol/L Chloride (98-110) mmol/L Carbon Dioxide (21-31) mmol/L BUN (6.0-23.0) mg/dL Creatinine (0.6-1.5) mg/dL Est Cr Clr Drug Dosing Estimated GFR (MDRD) ml/min Glucose (60-110) mg/dL Calcium (8.8-10.8) mg/dL Total Bilirubin (0.1-1.5) mg/dL AST (5-40) IU/L ALT (8-54) IU/L Alkaline Phosphatase (40-150) Total Protein (6.0-8.0) g/dL Albumin (3.5-5.0) g/dL Globulin (2.0-3.5) g/dL Albumin/Globulin Ratio (1.3-2.8) Urine Color YELLOW Urine Appearance CLEAR Urine pH 6.0 (5.0-8.0) Ur Specific [place] 1.020 (1.001-1.035) Urine Protein NEGATIVE (NEGATIVE) mg/dL Urine Glucose (UA) NEGATIVE (NEGATIVE) mg/dL Urine Ketones NEGATIVE (NEGATIVE) mg/dL Urine Occult Blood NEGATIVE (NEGATIVE) Urine Nitrite NEGATIVE (NEGATIVE) Urine Bilirubin NEGATIVE (NEGATIVE) Urine Urobilinogen 0.2 (<2.0) EU/dL Ur Leukocyte Esterase SMALL (NEGATIVE) Urine RBC 0-2 (0-2/HPF) Urine WBC 6-10 (0-5/HPF) Ur Epithelial Cells FEW (NONE-FEW) Urine Bacteria FEW (NEGATIVE) Urine HCG, Qual NEGATIVE (NEGATIVE) 08/09/17 Range/Units 02:59 WBC (4.0-11.0) K/uL RBC (4.30-5.90) M/uL Hgb (12.0-16.0) g/dL Hct (36.0-46.0) % MCV (80.0-98.0) fL MCH (27.0-32.0) pg MCHC (31.0-37.0) g/dL RDW Std Deviation (28.0-62.0) fl RDW Coeff of Iram (11.0-15.0) % Plt Count (150-400) K/uL MPV (7.40-12.00) fL Neut % (Auto) (48.0-80.0) % Lymph % (Auto) (16.0-40.0) % [place] % (Auto) (0.0-15.0) % Eos % (Auto) (0.0-7.0) % Baso % (Auto) (0.0-1.5) % Neut # (Auto) (1.4-5.7) K/uL Lymph # (Auto) (0.6-2.4) K/uL [place] # (Auto) (0.0-0.8) K/uL Eos # (Auto) (0.0-0.7) K/uL Baso # (Auto) (0.0-0.1) K/uL Nucleated RBC % /100WBC Nucleated RBCs # K/uL Sodium 139 (136-146) mmol/L Potassium 3.7 (3.5-5.1) mmol/L Chloride 108 (98-110) mmol/L Carbon Dioxide 22 (21-31) mmol/L BUN 17 (6.0-23.0) mg/dL Creatinine 0.8 (0.6-1.5) mg/dL Est Cr Clr Drug Dosing TNP Estimated GFR (MDRD) > 60.0 ml/min Glucose 146 H (60-110) mg/dL Calcium 9.1 (8.8-10.8) mg/dL Total Bilirubin 0.9 (0.1-1.5) mg/dL AST 19 (5-40) IU/L ALT 21 (8-54) IU/L Alkaline Phosphatase 79 (40-150) Total Protein 7.1 (6.0-8.0) g/dL Albumin 4.0 (3.5-5.0) g/dL Globulin 3.1 (2.0-3.5) g/dL Albumin/Globulin Ratio 1.3 (1.3-2.8) Urine Color Urine Appearance Urine pH (5.0-8.0) Ur Specific [place] (1.001-1.035) Urine Protein (NEGATIVE) mg/dL Urine Glucose (UA) (NEGATIVE) mg/dL Urine Ketones (NEGATIVE) mg/dL Urine Occult Blood (NEGATIVE) Urine Nitrite (NEGATIVE) Urine Bilirubin (NEGATIVE) Urine Urobilinogen (<2.0) EU/dL Ur Leukocyte Esterase (NEGATIVE) Urine RBC (0-2/HPF) Urine WBC (0-5/HPF) Ur Epithelial Cells (NONE-FEW) Urine Bacteria (NEGATIVE) Urine HCG, Qual (NEGATIVE) Result Diagrams: 08/09/17 02:59 08/09/17 02:59 *Q Meaningful Use (ADM) - VTE *Q VTE Criteria *Q: - Stroke *Q Stroke Criteria *Q: - AMI *Q AMI Criteria *Q: - Problem List (1) Appendicitis SNOMED Code(s): 88070134 ICD Code: K37 - UNSPECIFIED APPENDICITIS Status: Acute Current Visit: Yes Problem List Initiated/Reviewed/Updated: Yes Orders Last 24hrs: Active Orders 24 hr Category Date Time Status Patient Status [ADT] Routine ADT 08/09/17 04:48 Active Oxygen Therapy [RC] PRN Care 08/09/17 04:48 Active Up ad Heather [RC] ASDIRECTED Care 08/09/17 04:47 Active Vital Signs [RC] Q4H Care 08/09/17 04:48 Active Nothing Per Oral Diet [DIET] Diet 08/09/17 Breakfast Active Abdomen Pelvis wo Cont [CT] Stat Exams 08/09/17 02:52 Taken HYDROmorphone [Dilaudid] Med 08/09/17 04:47 Active 0.5 mg IVPUSH Q1H PRN Lactated Ringers [Ringers, Lactated] 1,000 ml Med 08/09/17 05:15 Active IV ASDIRECTED diphenhydrAMINE [Benadryl] Med 08/09/17 04:47 Active 25 mg IVPUSH Q4H PRN Resuscitation Status Routine Resus Stat 08/09/17 04:47 Ordered Medication Orders Diphenhydramine HCl (Benadryl) 25 mg IVPUSH Q4H PRN PRN Reason: Itching Hydromorphone HCl (Dilaudid) 0.5 mg IVPUSH Q1H PRN PRN Reason: Pain (severe 7-10) Lactated Ringer's (Ringers, Lactated) 1,000 mls @ 125 mls/hr IV ASDIRECTED [facility] Last Admin: 08/09/17 05:27 Dose: 125 mls/hr Assessment/Plan Comment:: The patient and I discussed the pathophysiology of appendicitis. The treatment is an appendectomy. We discussed the open and laparoscopic procedures. I will attempt this laparoscopically but if I cannot perform it safely I will convert to open. We discussed the procedure, perioperative course, and risks including bleeding infection or damage to surrounding structures. The patient verbalized understanding and wishes to proceed.
[2017-08-09] MEDS ORDERED: Bupivacaine 0.5% 30 ML SDV ONE (09:06)
[2017-08-09] MEDS ORDERED: Ondansetron 4 MG/2 ML SDV ONE (09:18)
[2017-08-09] MEDS ORDERED: Propofol 200 MG/20 ML SDV ONE (09:18)
[2017-08-09] MEDS ORDERED: Midazolam 1 MG/ML 2 ML SDV ONE (09:19)
[2017-08-09] MEDS ORDERED: Rocuronium 10 MG/ML 10 ML Syringe ONE (09:19)
[2017-08-09] MEDS ORDERED: Dexamethasone 4 MG/ML 5 ML MDV ONE (09:19)
[2017-08-09] MEDS ORDERED: Ketorolac 30 MG/ML SDV ONE (09:19)
[2017-08-09] MEDS ORDERED: fentaNYL 100 MCG/2 ML SDV ONE (09:19)
[2017-08-09] MEDS ORDERED: Sugammadex Sodium 200 MG/2 ML VIAL ONE (09:25)
--- NOTE | 2017-08-09 09:39 | PCM.PREANE ---
Preanesthetic Assessment - Anesthesia/Transfusion/Family Hx Anesthesia History: Prior Anesthesia Without Reaction Transfusion History: No Prior Transfusion(s) - Review of Systems General: No Symptoms Pulmonary: No Symptoms Cardiovascular: No Symptoms Gastrointestinal: No Symptoms, Other Neurological: No Symptoms Other: Reports: None - Physical Assessment NPO Status Date: 08/09/17 NPO Status Time: 01:00 O2 Sat by Pulse Oximetry: 98 Respiratory Rate: 18 Vital Signs: Last Vital Signs Temp 36.9 C 08/09/17 08:00 Pulse 95 08/09/17 08:00 Resp 18 08/09/17 08:00 BP 109/71 08/09/17 08:00 Pulse Ox 98 08/09/17 08:00 Height: 1.63 m Weight: 72.9 kg ASA Class: 2E Mental Status: Alert & Oriented x3 Airway Class: Mallampati = 1 Dentition: Reports: Normal Dentition ROM/Head Extension: Full Lungs: Clear to Auscultation Cardiovascular: Regular Rate - Lab Values: Laboratory Last Values WBC 12.99 K/uL (4.0-11.0) H 08/09/17 02:59 RBC 4.13 M/uL (4.30-5.90) L 08/09/17 02:59 Hgb 13.0 g/dL (12.0-16.0) 08/09/17 02:59 Hct 36.7 % (36.0-46.0) 08/09/17 02:59 MCV 88.9 fL (80.0-98.0) 08/09/17 02:59 MCH 31.5 pg (27.0-32.0) 08/09/17 02:59 MCHC 35.4 g/dL (31.0-37.0) 08/09/17 02:59 RDW Std Deviation 41.0 fl (28.0-62.0) 08/09/17 02:59 RDW Coeff of Iram 13 % (11.0-15.0) 08/09/17 02:59 Plt Count 205 K/uL (150-400) 08/09/17 02:59 MPV 10.20 fL (7.40-12.00) 08/09/17 02:59 Neut % (Auto) 81.3 % (48.0-80.0) H 08/09/17 02:59 Lymph % (Auto) 10.5 % (16.0-40.0) L 08/09/17 02:59 [place] % (Auto) 6.4 % (0.0-15.0) 08/09/17 02:59 Eos % (Auto) 1.6 % (0.0-7.0) 08/09/17 02:59 Baso % (Auto) 0.2 % (0.0-1.5) 08/09/17 02:59 Neut # (Auto) 10.6 K/uL (1.4-5.7) H 08/09/17 02:59 Lymph # (Auto) 1.4 K/uL (0.6-2.4) 08/09/17 02:59 [place] # (Auto) 0.8 K/uL (0.0-0.8) 08/09/17 02:59 Eos # (Auto) 0.2 K/uL (0.0-0.7) 08/09/17 02:59 Baso # (Auto) 0.0 K/uL (0.0-0.1) 08/09/17 02:59 Nucleated RBC % 0.0 /100WBC 08/09/17 02:59 Nucleated RBCs # 0 K/uL 08/09/17 02:59 Sodium 139 mmol/L (136-146) 08/09/17 02:59 Potassium 3.7 mmol/L (3.5-5.1) 08/09/17 02:59 Chloride 108 mmol/L (98-110) 08/09/17 02:59 Carbon Dioxide 22 mmol/L (21-31) 08/09/17 02:59 BUN 17 mg/dL (6.0-23.0) 08/09/17 02:59 Creatinine 0.8 mg/dL (0.6-1.5) 08/09/17 02:59 Est Cr Clr Drug Dosing TNP 08/09/17 02:59 Estimated GFR (MDRD) > 60.0 ml/min 08/09/17 02:59 Glucose 146 mg/dL (60-110) H 08/09/17 02:59 Calcium 9.1 mg/dL (8.8-10.8) 08/09/17 02:59 Total Bilirubin 0.9 mg/dL (0.1-1.5) 08/09/17 02:59 AST 19 IU/L (5-40) 08/09/17 02:59 ALT 21 IU/L (8-54) 08/09/17 02:59 Alkaline Phosphatase 79 (40-150) 08/09/17 02:59 Total Protein 7.1 g/dL (6.0-8.0) 08/09/17 02:59 Albumin 4.0 g/dL (3.5-5.0) 08/09/17 02:59 Globulin 3.1 g/dL (2.0-3.5) 08/09/17 02:59 Albumin/Globulin Ratio 1.3 (1.3-2.8) 08/09/17 02:59 Urine Color YELLOW 08/09/17 02:55 Urine Appearance CLEAR 08/09/17 02:55 Urine pH 6.0 (5.0-8.0) 08/09/17 02:55 Ur Specific [place] 1.020 (1.001-1.035) 08/09/17 02:55 Urine Protein NEGATIVE mg/dL (NEGATIVE) 08/09/17 02:55 Urine Glucose (UA) NEGATIVE mg/dL (NEGATIVE) 08/09/17 02:55 Urine Ketones NEGATIVE mg/dL (NEGATIVE) 08/09/17 02:55 Urine Occult Blood NEGATIVE (NEGATIVE) 08/09/17 02:55 Urine Nitrite NEGATIVE (NEGATIVE) 08/09/17 02:55 Urine Bilirubin NEGATIVE (NEGATIVE) 08/09/17 02:55 Urine Urobilinogen 0.2 EU/dL (<2.0) 08/09/17 02:55 Ur Leukocyte Esterase SMALL (NEGATIVE) 08/09/17 02:55 Urine RBC 0-2 (0-2/HPF) 08/09/17 02:55 Urine WBC 6-10 (0-5/HPF) 08/09/17 02:55 Ur Epithelial Cells FEW (NONE-FEW) 08/09/17 02:55 Urine Bacteria FEW (NEGATIVE) 08/09/17 02:55 Urine HCG, Qual NEGATIVE (NEGATIVE) 08/09/17 02:55 - Allergies Allergies/Adverse Reactions: Allergies Allergy/AdvReac Type Severity Reaction Status Date / Time amoxicillin Allergy Hives Verified 08/09/17 02:41 - Blood Product(s) Available: None - Anesthesia Plan Pre-Op Medication Ordered: None - Acknowledgements Anesthesia Type Planned: General Anesthesia Pt an Appropriate Candidate for the Planned Anesthesia: Yes Alternatives and Risks of Anesthesia Discussed w Pt/Guardian: Yes Pt/Guardian Understands and Agrees with Anesthesia Plan: Yes Additional Comments: Discussed with patient. Questions answered. Understands risks and benefits. Permit signed. Wishes to procent. No history of anesthesia problems ALLERGIES: Amoxicillin Delivered: April 2017 PreAnesthesia Questionnaire HEENT History: Reports: None Cardiovascular History: Reports: None Respiratory History: Reports: None Gastrointestinal History: Reports: None Genitourinary History: Reports: None CREDIT ASSISTANT History: Reports: Musculoskeletal History: Reports: None Neurological History: Reports: None Psychiatric History: Reports: None Endocrine/Metabolic History: Reports: None Hematologic History: Reports: None Immunologic History: Reports: None Oncologic (Cancer) History: Reports: None Dermatologic History: Reports: None - Infectious Disease History Infectious Disease History: Reports: Chicken Pox - Past Surgical History Head Surgeries/Procedures: Reports: None HEENT Surgical History: Reports: Oral Surgery, Other (See Below) Other HEENT Surgeries/Procedures: wisdom tooth extraction, near sighted Cardiovascular Surgical History: Reports: None Respiratory Surgical History: Reports: None GI Surgical History: Reports: None Female Surgical History: Reports: None Musculoskeletal Surgical History: Reports: None Oncologic Surgical History: Reports: None - SUBSTANCE USE Smoking Status *Q: Former Smoker Second Hand Smoke Exposure: Yes Recreational Drug Use History: No - HOME MEDS Home Medications: Home Meds Hydrocodone/Acetaminophen [[place] 5-325] 2 tab PO Q4H PRN #20 tablet 08/09/17 [Rx ] Norethindrone [Ruby] 1 tab PO DAILY 08/09/17 [History] - CURRENT (IN HOUSE) MEDS Current Meds: Current Medications Diphenhydramine HCl (Benadryl) 25 mg IVPUSH Q4H PRN PRN Reason: Itching Hydromorphone HCl (Dilaudid) 0.5 mg IVPUSH Q1H PRN PRN Reason: Pain (severe 7-10) Lactated Ringer's (Ringers, Lactated) 1,000 mls @ 125 mls/hr IV ASDIRECTED BRENDEN Last Admin: 08/09/17 05:27 Dose: 125 mls/hr Discontinued Medications Bupivacaine HCl (Marcaine 0.5%) Confirm Administered Dose 30 ml .ROUTE .STK-MED ONE Stop: 08/09/17 09:07 Dexamethasone (Dexamethasone) Confirm Administered Dose 20 mg .ROUTE .STK-MED ONE Stop: 08/09/17 09:20 Fentanyl (Sublimaze) Confirm Administered Dose 100 mcg .ROUTE .STK-MED ONE Stop: 08/09/17 09:20 Glycopyrrolate () Confirm Administered Dose 1 mg .ROUTE .STK-MED ONE Stop: 08/09/17 09:20 Sodium Chloride (Normal Saline) 1,000 mls @ 999 mls/hr IV .Bolus ONE Stop: 08/09/17 04:24 Last Admin: 08/09/17 03:38 Dose: 999 mls/hr Levofloxacin/Dextrose 750 mg/ (Premix) 150 mls @ 100 mls/hr IV ONETIME ONE Stop: 08/09/17 06:23 Last Admin: 08/09/17 05:27 Dose: 100 mls/hr Metronidazole 500 mg/ Premix 100 mls @ 100 mls/hr IV ONETIME ONE Stop: 08/09/17 05:55 Last Admin: 08/09/17 07:18 Dose: 100 mls/hr Acetaminophen (Ofirmev) Confirm Administered Dose 100 mls @ as directed IV .STK- MED ONE Stop: 08/09/17 09:26 Ketorolac Tromethamine (Toradol) Confirm Administered Dose 30 mg .ROUTE .STK- MED ONE Stop: 08/09/17 09:20 Midazolam HCl (Versed 1 Mg/Ml) Confirm Administered Dose 2 mg .ROUTE .STK-MED ONE Stop: 08/09/17 09:20 Ondansetron HCl (Zofran) Confirm Administered Dose 4 mg .ROUTE .STK-MED ONE Stop: 08/09/17 09:19 Propofol (Diprivan 20 Ml) Confirm Administered Dose 200 mg .ROUTE .STK-MED ONE Stop: 08/09/17 09:19 Rocuronium [place] (Zemuron) Confirm Administered Dose 100 mg .ROUTE .STK-MED ONE Stop: 08/09/17 09:20
[2017-08-09] MEDS ORDERED: Morphine 10 MG/ML Syringe ONE (10:08)
--- NOTE | 2017-08-09 10:56 | PCM.OPNOTE ---
- General Post-Op/Procedure Note Date of Surgery/Procedure: 08/09/17 Operative Procedure(s): Laparoscopic appendectmy Findings: Inflamed and enlarged appendix. Non-perforated Pre Op Diagnosis: appendicitis Post-Op Diagnosis: appendicitis Anesthesia Technique: General ET Tube Primary Surgeon: Virginia Flores Pathology: appy Fluid Replacement, Intraop: 1,000 Output, Urine Amount: 220 EBL in mLs: 10 Condition: Fair Free Text/Narrative:: Intake & Output 08/08/17 08/09/17 08/09/17 22:59 06:59 14:59 Intake Total 250 Balance 250
[2017-08-09] MEDS ORDERED: Acetaminophen/HYDROcodone 325-5 MG Tab PO PRN (10:58)
--- NOTE | 2017-08-09 11:27 | PCM.POSTAN ---
POST ANESTHESIA ASSESSMENT - MENTAL STATUS Mental Status: Alert, Oriented - VITAL SIGNS Pulse Rate: 102 SaO2: 99 Resp Rate: 16 Blood Pressure: 112/76 Temperature: 37 C - RESPIRATORY Respiratory Status: Respiratory Rate WNL, Airway Patent, O2 Saturation Stable - CARDIOVASCULAR CV Status: Pulse Rate WNL, Blood Pressure Stable - GASTROINTESTINAL GI Status: No Symptoms - PAIN Pain Score: 1 - POST OP HYDRATION Hydration Status: Adequate & Stable - OBSERVATIONS Free Text/Narrative:: Awake, doing well. Returned to floor, planned discharge this PM.
--- NOTE | 2017-08-09 11:33 | OR ---
SURGEON: AUDRA CASTILLO MD DATE OF PROCEDURE: 08/09/2017 PREOPERATIVE DIAGNOSIS: Acute appendicitis. POSTOPERATIVE DIAGNOSIS: Acute appendicitis. PROCEDURE PERFORMED: Laparoscopic appendectomy. ANESTHESIA: General endotracheal anesthesia. FLUIDS: 1000 mL crystalloid. ESTIMATED BLOOD LOSS: 10 mL. URINE OUTPUT: 220 mL. FINDINGS: Grossly enlarged and inflamed appendix, not perforated. COMPLICATIONS: None. INDICATIONS: The patient is a 31-year-old female, who developed right lower quadrant pain at 12:30 this morning. This is associated with nausea and vomiting. She presented to the emergency room. She was found to have a leukocytosis of 13,000, and CT of the abdomen and pelvis showed a dilated appendix consistent with acute appendicitis. The patient and I discussed the pathophysiology of appendicitis. We discussed the treatment for this, which is appendectomy. We discussed laparoscopic and open procedure. I will perform this laparoscopically, however, should I be unable to perform it safely, I will convert to open. We discussed the procedure, expected perioperative course, and risks including bleeding, infection, or damage to surrounding structures, including perforation. The patient verbalized understanding and wishes to proceed. PROCEDURE IN DETAIL: The patient was brought into the OR suite and placed on the OR table in supine position. A time-out was completed verifying the patient's name, age, date of , allergies, and procedure to be performed. General endotracheal anesthesia was induced. A Jimenez catheter was placed and the left arm was tucked to the patient's side. The abdomen was prepped and draped in the usual standard fashion. I used 0.5% Marcaine plain to anesthetize an area two fingerbreadths below the left subcostal margin along the midclavicular line. A 1 cm incision was made over this area using an 11 blade. A 5 mm optical trocar was used to gain access into the abdomen. All layers of the abdominal wall were visualized upon entry. The abdomen was insufflated. A 5 mm 30-degree scope was inserted into the abdomen and I inspected the area underneath my trocar insertion site. No damage to surrounding structures was noted. A 5 mm trocar was placed under direct visualization just left and lateral to the umbilicus. A 12 mm trocar was placed in the left lower quadrant under direct visualization. The patient was placed into Trendelenburg position and airplaned slightly to the left. I focused on the right lower quadrant and immediately noticed an enlarged and inflamed appendix. It did not appear perforated. The appendiceal mesentery was thickened and inflamed. I attempted to create a window between the base of the appendix and the cecum, but was unable due to how inflamed tissues were. I took down the appendiceal mesentery adjacent to the appendix using a harmonic Scalpel. This dissection was carried distal to proximal. Once I came to the proximal appendix, I was able to then use a Cara dissector to identify exactly where the appendix inserted on the cecum. Once this was cleared away, an endoscopic stapling device was brought into the field. I stapled and transected across the base of the appendix using a 45 mm blue load. The appendix was placed into an EndoCatch bag and removed through the 12 mm port site. The 12 mm port was then replaced and I inspected the area of my operation. It appeared to be hemostatic. I irrigated the abdomen with 1 L of normal saline until it ran clear. My 12 mm port site was then closed using a Ilia-Charisma device and an 0 Vicryl suture. The 5 mm ports were removed under direct visualization and the abdomen allowed to desufflate. The left lower quadrant incision was closed with interrupted 3-0 Vicryl in the subcutaneous layer and interrupted 4-0 Monocryl sutures along the skin. The 5 mm trocar sites were closed with interrupted 4-0 Monocryl sutures. Steri-Strips and sterile dressings were applied. The patient tolerated the procedure well and was taken to PACU in stable condition. HAYDEE DE JESUS /[id number]
[2017-08-09 15:09] VITALS: BP 104/59
--- NOTE | 2017-08-09 20:29 | CT ---
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 Site : 1985 Study: CT Abdomen/Pelvis [id number] 4:24:48 AM Ordering Physician: Janae Mooney Final Report: INDICATION: Right lower quadrant pain TECHNIQUE: CT abdomen and pelvis without contrast. COMPARISON: None FINDINGS: Lower chest: Unremarkable. Liver: Unremarkable. Spleen: Unremarkable. Pancreas: Unremarkable. Gallbladder and bile ducts: Unremarkable. Kidneys: Unremarkable. No kidney or ureteral stones and no hydronephrosis. Adrenal glands: Unremarkable. GI tract: Unremarkable. The appendix is dilated to 9 millimeters. With multiple small appendicular is some mild adjacent inflammatory stranding. Findings consistent with uncomplicated acute appendicitis. Vascular structures: Unremarkable. Lymph nodes: Unremarkable. Miscellaneous: Small fat containing umbilical hernia. No free air or significant free fluid. Pelvic Organs: Unremarkable. Bones: Unremarkable for age. IMPRESSION: Dilated appendix at 9 millimeters with mild adjacent inflammatory stranding consistent with uncomplicated acute appendicitis. Dictated by Lico Alcaraz MD @ 08/09/2017 4:32:53 AM Dictated by: Lico Alcaraz MD @ 08/09/2017 04:33:02 (Electronic Signature) Report Signed by Proxy. STUART
== END 2017-08-09 18:00 | disposition home or self-care (01) ==
LOC: MW.ED 02:33 → MW.SDS 04:48 → MW.MS 04:48 → MW.SDS 18:00
PROVIDERS: ATTEND Surgery
DX: K35.80 Unspecified acute appendicitis (principal); Z87.891 Personal history of nicotine dependence; Z88.0 Allergy status to penicillin; Z79.899 Other long term (current) drug therapy; Z98.818 Other dental procedure status
CPT/HCPCS: 36415; 44970; 74176; 80053; 81001; 81025; 85025; 96360; 99285; C9399; J1100; J1885; J1956; J2250; J2270; J2405; J3010; J7040; J7120; 00840; 88305; 99282; J2704